=== PATIENT | male | born 1990 | race Caucasian/White ===

== ENCOUNTER 2016-08-15 09:10 | Emergency (ER) | payer OTHER | END 2016-08-15 11:59 | disposition home or self-care (01) | LOC: FER 09:10 | DX: S32.019A Unspecified fracture of first lumbar vertebra, initial encounter for closed fracture (principal); V47.5XXA Car driver injured in collision with fixed or stationary object in traffic accident, initial encounter; Y92.410 Unspecified street and highway as the place of occurrence of the external cause | CPT/HCPCS: 72110; J1885 ==